=== PATIENT | male | born 1965 | race Caucasian/White ===

== ENCOUNTER 2021-06-08 09:40 | Outpatient (CLI) | payer BC, SELFPAY ==
--- NOTE | ~2021-06-08 | NM_ITS ---
EXAMINATION: NM stress w perf spect multi DATE: 06/08/2021 12:25 INDICATION: Other chest pain. TECHNIQUE: Rest images were obtained following intravenous administration of 10 mCi Tc99m tetrofosmin (Myoview). The patient performed an exercise activity. At peak exercise, 30.8 mCi Tc99m tetrofosmin (Myoview) was administered intravenously, and stress images were obtained. Data was reconstructed int o short axis and horizontal and vertical long axis SPECT images. Gated SPECT images were also obtaine d. COMPARISON: CT abdomen and pelvis 04/02/2019 FINDINGS: There is no definite reversible or fixed perfusion abnormality to suggest ischemia or infar ction. There is no segmental wall motion abnormality. Left ventricular ejection fraction measures 6 9%. IMPRESSION: 1. No definite ischemia or infarct. 2. Normal left ventricular ejection fraction measuring 69%. Reviewed, dictated and finalized at location A. 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
--- NOTE | 2021-06-08 10:05 | EST_ITS ---
Patient Info Name: Akhil Mckay Age: 55 years : 1965 Gender: Male Ht: 77 in Wt: 270 lbs BSA: 2.61 m2 HR: 65 bpm BP: 120 / 88 mmHg Heart Rhythm: Sinus Arrhythmia Exam Date: 06/08/2021 11:04 AM Exam Location: [facility] Stress Patient Status: Outpatient Admit Date: 06/08/2021 Staff Ordering Physician: Augusta Mason MD Attending Provider: Augusta Mason MD Exercise Technologist: Dagmar Rooney CT Exercise Physician: Melchor Bernard DO Exam Type: CA stress test treadmill w NM Study Info Indications R07.9 - Chest pain, unspecified A nuclear stress test was performed. Summary 1. 1. Negative [place] exercise stress test for ischemic ST changes by ECG criteria. 2. 2. Good functional capacity, achieving 10 METs of workload. 3. 3. Hypertensive response to exercise. 4. 4. Appropriate HR response to exercise. 5. 5. Appropriate HR recovery at 1 minute post exercise. 6. 6. Nuclear scan to follow and will be reported separately. Please correlate with it. 7. 7. Patient informed of the above results. Protocol: [place] Stress ECG Details Stage: REST Duration (min): 0 min : 54 sec Speed (mph): 0.0 Grade (%): 0 HR (bpm): 64 SBP (mmHg): 120 DBP (mmHg): 88 METS: --- Stage: REST Duration (min): 5 min : 28 sec Speed (mph): 0.0 Grade (%): 0 HR (bpm): 67 SBP (mmHg): 120 DBP (mmHg): 88 METS: --- Stage: STAGE 1 Duration (min): 1 min : 0 sec Speed (mph): 1.7 Grade (%): 10 HR (bpm): 102 SBP (mmHg): 120 DBP (mmHg): 88 METS: --- Stage: STAGE 1 Duration (min): 2 min : 0 sec Speed (mph): 1.7 Grade (%): 10 HR (bpm): 106 SBP (mmHg): 120 DBP (mmHg): 88 METS: --- Stage: STAGE 1 Duration (min): 3 min : 0 sec Speed (mph): 1.7 Grade (%): 10 HR (bpm): 105 SBP (mmHg): 170 DBP (mmHg): 77 METS: --- Stage: STAGE 2 Duration (min): 1 min : 0 sec Speed (mph): 2.5 Grade (%): 12 HR (bpm): 119 SBP (mmHg): 170 DBP (mmHg): 77 METS: --- Stage: STAGE 2 Duration (min): 2 min : 0 sec Speed (mph): 2.5 Grade (%): 12 HR (bpm): 124 SBP (mmHg): 180 DBP (mmHg): 79 METS: --- Stage: STAGE 2 Duration (min): 3 min : 0 sec Speed (mph): 2.5 Grade (%): 12 HR (bpm): 129 SBP (mmHg): 180 DBP (mmHg): 79 METS: --- Stage: STAGE 3 Duration (min): 1 min : 0 sec Speed (mph): 3.4 Grade (%): 14 HR (bpm): 143 SBP (mmHg): 215 DBP (mmHg): 82 METS: --- Stage: STAGE 3 Duration (min): 2 min : 0 sec Speed (mph): 3.4 Grade (%): 14 HR (bpm): 150 SBP (mmHg): 215 DBP (mmHg): 82 METS: --- Stage: STAGE 3 Duration (min): 3 min : 0 sec Speed (mph): 3.4 Grade (%): 14 HR (bpm): 156 SBP (mmHg): 171 DBP (mmHg): 77 METS: --- Stage: RECOVERY Duration (min): 0 min : 59 sec Speed (mph): 0.0 Grade (%): 0 HR (bpm)
== END 2021-06-08 09:41 | disposition home or self-care (01) ==
LOC: ANHCARD 09:43
PROVIDERS: PCP Family Medicine; Visit Provider Family Medicine
DX: R07.89 Other chest pain (principal)
CPT/HCPCS: 78452; 93017; A9502

== ENCOUNTER 2021-06-24 17:05 | Outpatient (CLI) | payer BC, SELFPAY ==
--- NOTE | ~2021-06-24 | CT_ITS ---
EXAMINATION: CT IAC/mastoids BI wo con DATE: 06/24/2021 18:00 INDICATION: Otalgia, right ear. TECHNIQUE: Computed tomography (CT) of the temporal bones was performed without intravenous contrast. Automated exposure control and iterative reconstruction technique were employed. The dose-length pro duct was 259.47 mGy-cm. COMPARISON: None FINDINGS: RIGHT TEMPORAL BONE: The internal auditory canal, cochlea, vestibule, semicircular canals, vestibular aqueduct, carotid ca nal, jugular bulb, facial nerve course, ossicles, Prussak space, scutum, tympanic membrane, and exter nal auditory canal are normal. There is a trace right mastoid effusion. LEFT TEMPORAL BONE: The internal auditory canal, cochlea, vestibule, semicircular canals, vestibular aqueduct, carotid ca nal, jugular bulb, facial nerve course, ossicles, Prussak space, scutum, tympanic membrane, external auditory canal, and mastoid air cells are normal. IMPRESSION: 1. Trace right mastoid effusion. Reviewed, dictated and finalized at location A.
== END 2021-06-24 17:06 | disposition home or self-care (01) ==
PROVIDERS: PCP Family Medicine; Visit Provider Otolaryngology
DX: H92.01 Otalgia, right ear (principal)
CPT/HCPCS: 70480

== ENCOUNTER 2021-07-17 17:16 | Outpatient (CLI) | payer BC, SELFPAY ==
--- NOTE | ~2021-07-17 | XR_ITS ---
XR finger 5th LT min 2V DATE: 07/17/2021 17:33 INDICATION: Osteomyelitis TECHNIQUE: 3 views COMPARISON: May 20, 2014 left fifth digit FINDINGS: There is an anchor device at the proximal shaft of the distal phalanx. There is some surrou nding lucency, with loss of dorsal cortex over the device. Osteomyelitis is not excluded. Consider 3 phase radionuclide bone scan correlation. Old healed dorsal avulsion fracture of the base of the distal phalanx. Soft tissue swelling dorsally over the proximal interphalangeal joint, without proximal interphalange al joint space narrowing. 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 IMPRESSION: Radiopaque fixation device at the proximal shaft of the distal phalanx with surrounding l ucency and loss of cortex dorsally over this area. 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 IMPRESSION: Radiopaque fixation device at the proximal shaft of the distal phal anx with surrounding lucency and loss of cortex dorsally over this area. 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
== END 2021-07-17 17:17 | disposition home or self-care (01) ==
LOC: ANHIMG 17:21
PROVIDERS: PCP Family Medicine; Visit Provider Plastic Surgery
DX: M86.442 Chronic osteomyelitis with draining sinus, left hand (principal); M79.89 Other specified soft tissue disorders
CPT/HCPCS: 73140

== ENCOUNTER → 2021-07-28 07:25 | Outpatient (CLI) | payer BC, SELFPAY ==
[2021-07-28 12:33] LABS: SARS-CoV-2 RNA PCR Negative
== END ==
PROVIDERS: PCP Family Medicine; Visit Provider Plastic Surgery
DX: Z01.812 Encounter for preprocedural laboratory examination (principal); Z20.822 Contact with and (suspected) exposure to COVID-19
CPT/HCPCS: C9803; U0003; U0005

== ENCOUNTER 2021-07-30 00:16 | Day surgery (SDC) | payer BC, SELFPAY ==
[2021-07-28 15:04] VITALS: BMI 30.8
--- NOTE | 2021-07-28 15:11 | PC.NURSE ---
Report to the Outpatient Waiting Room, entrance under the green pavilion located off [facility], at time 1145 on date 07/30/21. OR Time: 1245. - You and your visitor will be asked a series of questions to screen for COVID 19 for your protection. - A mask is required within the hospital. One visitor will be allowed to accompany the patient into the hospital. Patients visitor will be instructed to remain with patient at all times or leave the building. We will allow the visitor to come back to the postoperative area when patient is ready. Preoperative COVID Testing Requirements: COVID TEST 07/28 - NEGATIVE No COVID Test needed if: (proof is required; if not received patient will have Rapid Test prior to entry) - Patient has received COVID Vaccine at least 14 days prior to procedure date or - Patient has positive COVID test result within last 90 days of surgery date. COVID Test needed if above criteria is not met If not COVID vaccinated a COVID test must be conducted within 72 hours of surgery and patient is asked to isolate self from time of testing until procedure. You will go to the [facility] for your COVID testing. The [employer] [facility] site is located at the corner of [address] [facility]. You will only be called if COVID results are positive and your surgeon may reschedule your elective surgery date. Patients may have LIGHT BREAKFAST/SNACK Take the following medications with a SIP of water the morning of surgery: PRESCRIBED Medications to discontinue per physician: N/A Date to take last dose: N/A Please no make-up, nail khmer, hairspray, perfume, deodorant, or body powder the day of surgery. No jewelry (including any body piercings) or valuables the day of surgery, leave them at home. Please take a shower or bath the night before, or the morning of, surgery with an antibacterial soap. Wear comfortable, loose fitting clothing. - Jewelry must be removed prior to entering the operating room. Rings and piercings that are not removed may be cut off. - The hospital will not accept responsibility for valuables. - Please leave all valuables, including medications, at home the day of surgery. YOU MAY DRIVE YOURSELF HOME. Follow any additional instructions given to you from your surgeon. Telephone instructions given to AMISH OWENS and asked if any additional questions and then verbalized understanding. Patient advised to call surgeon office or pre surgery nurse liaison [phone] if any additional questions.
[2021-07-30] VITALS (9 sets, daily range): BP systolic 126–159; BP diastolic 75–84; PULSE 62–72; RESP 16–18; TEMP 36.4; O2SAT 95–98
--- NOTE | ~2021-07-30 | XR_ITS ---
EXAMINATION: XR surgery orthopedic DATE: 07/30/2021 14:26 INDICATION: Attempted removal of a suture anchor at the left fifth distal phalanx. TECHNIQUE: Dorsal palmar and lateral views of the left fifth digit were obtained during procedure per formed by Dr. Shaw. Radiologist was not present for the imaging or procedure. The amount of fluorosc opy time used during this procedure was 0.1 minutes. COMPARISON: 07/17/2021 FINDINGS: Again seen is a suture anchor within the proximal metadiaphyseal region of the fifth distal phalanx. There is some lucency in the adjacent soft tissues consistent with reported history of recent attempt at a suture anchor removal. There is a tiny metallic density in the region of lucency likely represe nting a fragment of the suture anchor. Irregular contour at the dorsal base of the distal phalanx sug gesting an old healed avulsion fracture. No acute fractures identified. Joint spaces are relatively p reserved. IMPRESSION: 1. Persistent suture anchor within the left fifth distal phalanx post reported attempted removal. Reviewed, dictated and finalized at location A.
--- NOTE | 2021-07-30 07:17 | WPDHPUPDATE1 ---
History and Physical Update Update Date/Time: 07/30/21 07:17 History and Physical has been reviewed, including an updated exam of the patient. There are NO changes in the patient's condition. Risks, benefits, and alternatives have been discussed and questions answered. Patient agrees to proceed with procedure.
[2021-07-30] MEDS: LIDO 1%/EPINEPHRINE/PF 1:200,000 30 ML VIAL XX (13:26)
--- NOTE | 2021-07-30 14:26 | P.OP_ITS ---
Procedure Note - Detailed Date of Procedure 07/30/21 Pre-op Diagnosis hx of ORIF left 5th distal phalanx. Osteomyelitis of left 5th distal phalanx. Post-op Diagnosis Same Procedure Performed Attempted removal of [place] anchor distal phalanx left 5th finger. Surgeon Kar Shaw MD Anesthesia Local Indications Osteomyelitis. Findings Stable [place] anchor. No purulence. No unstable bone on palmar aspect. Description of Procedure The patient is left 5th finger was marked in the holding area. He was taken to the operating room where he was placed supine on the operating table. The left upper extremity was prepped and draped in usual fashion. The digit was anesthetized with a 1% lidocaine with epinephrine intrathecal block. A red tourniquet was placed at the base of the finger. Images were made with the large C-arm to visualize the position of the my tech anchor. The palmar incision was made down the midline of the distal phalanx. The subcutaneous tissue was bluntly dissected away from the bone in the anchor was identified. [place] was likewise further dissected using a 15 blade and a small curette. I encountered no purulence, chronic granulation tissue or unstable. Attempt was made to remove the by tech anchor for palm the palmar side. The anchor was visible. Least 5 mm more external to the bone surface. I was not able to pull it out with pliers or large needle holders. I did not make an attempt to extricate this anchor by doing any further damage to the bone. I did not send the culture from this aspect. The dorsal aspect of this finger did not show evidence of acute purulence. The wound was copiously irrigated and the skin closed with interrupted 5 0 nylon suture. A small bandage was applied. The patient home antibiotic course of metronidazole and Augmentin will be continued at least 1 additional week. Hydrocodone 05/325 was also sent to his pharmacy. Estimated Blood Loss 0 Drains No Packing No Pathology None sent Complications No immediate complications Condition Stable Disposition Same day
== END 2021-07-30 14:29 | disposition home or self-care (01) ==
PROVIDERS: PCP Family Medicine; Visit Provider Plastic Surgery
PROC: (CPT 20694; principal; 2021-07-30 12:45)
DX: M86.8X4 Other osteomyelitis, hand (principal)
CPT/HCPCS: 20680

== ENCOUNTER 2022-03-16 14:27 | Outpatient (CLI) | payer BC, SELFPAY ==
--- NOTE | ~2022-03-16 | XR_ITS ---
XR chest 2V 03/16/2022 14:48 Indication: Cough for 4 days Procedure: PA and lateral views of the chest Comparison: Comparison to multiple prior studies sequentially, with oldest reviewed study dated 08/2011. Findings: Heart size normal. No focal air space disease, pulmonary edema, pleural effusion or suspect ed pneumothorax. Impression: 1: No acute cardiopulmonary disease. Reviewed, dictated and finalized at location A. 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
== END 2022-03-16 14:28 | disposition home or self-care (01) ==
LOC: ANHIMG 14:32
PROVIDERS: PCP Family Medicine; Visit Provider Family Medicine
DX: R05.9 Cough, unspecified (principal)
CPT/HCPCS: 71046